=== PATIENT | male | born 1990 | race Two or more races ===

== ENCOUNTER 2024-09-05 06:02 | Emergency (ER) | payer BC, SELFPAY ==
[2024-09-05 06:03] VITALS: BMI 39.1
[2024-09-05 06:32] VITALS: BP 163/93; PULSE 97; RESP 18; TEMP 38; O2SAT 98
[2024-09-05] MEDS: IBUPROFEN TAB 400 MG TABLET 800 MG PO (07:06)
--- NOTE | 2024-09-05 07:55 | XR_ITS ---
Examination: Lumbar spine 3 views Technique one AP lateral coned lateral lower lumbar spine 3 views Exam date and time: September 05, 2024 0825 hours INDICATIONS: Lower back pain beginning 3 years ago FINDINGS: Adequate alignment lumbar vertebral bodies Advanced disc narrowing L5-S1 No spondylolisthesis IMPRESSION: Advanced degenerative disc disease L5-S1
--- NOTE | 2024-09-05 07:55 | XR_ITS ---
Examination: PA lateral chest 2 views TECHNIQUE: Upright PA lateral chest 2 views Exam date and time: September 05, 2024 0818 hours INDICATIONS: Coughing fever beginning 3 days ago. FINDINGS: Normal heart size Lungs are clear. The osseous structures are intact IMPRESSION: No active disease
--- NOTE | 2024-09-05 07:57 | PD.EDRME ---
Rapid Medical Screening Exam RME Arrival date/time: 09/05/24 06:02 This is a 34-year-old male who presents to the emergency department with complaints of headache and lower back pain associated with fever 3 days. I have greeted and performed a focused initial assessment of this patient. Initial appropriate labs ordered at this time. A comprehensive ED assessment and evaluation of the patient and analysis of all test and completion of medical decision making process will be conducted by additional ED provider. Chief Complaint: Fever Time Seen by Provider: 09/05/24 06:11 Vital signs: Vital Signs Temperature 100.4 F 09/05/24 06:32 Pulse Rate 97 09/05/24 06:32 Respiratory Rate 18 09/05/24 06:32 Blood Pressure 163/93 H 09/05/24 06:32 Pulse Oximetry (%) 98 09/05/24 06:32 Oxygen Delivery Method Room Air 09/05/24 06:32
[2024-09-05 08:00] LABS: Strep A Rapid Negative (Negative)
[2024-09-05 09:09] LABS: Lactate (Lactic Acid) 1.3 mMol/L (0.4-2.0)
[2024-09-05 09:10] LABS: Basophils # (Auto) 0.1 Thou/mm3 (0.0-0.2); Basophils % (Auto) 1 % (0-2.5); Eosinophils # (Auto) 0.1 Thou/mm3 (0.0-0.5); Eosinophils % (Auto) 1 % (0-10); Hematocrit 43.9 % (41.0-53.0); Hemoglobin 15.6 g/dL (13.5-16.0); Immature Granulocytes % (Auto) 0 % (0-0); Immature Granulocytes Auto 0.01 Thou/mm3 (0.00-0.00); Lymphocytes # (Auto) 2.1 Thou/mm3 (1.0-4.8); Lymphocytes % (Auto) 29 % (10-50); Mean Corpuscular HGB Conc 35.5 g/dl (31.0-37.0); Mean Corpuscular Hemoglobin 31.9 pg (25.0-35.0); Mean Corpuscular Volume 90 fL (80-100); Monocytes # (Auto) 0.9 Thou/mm3 (0.0-0.8); Monocytes % (Auto) 12 % (0-12); Neutrophils # (Auto) 4.2 Thou/mm3 (1.8-7.7); Neutrophils % (Auto) 57 % (37-80); Nucleated Red Blood Cell % 0 /100 WBC (0); Platelet Count 285 Thou/mm3 (140-440); RDW Standard Deviation 40.5 fL (35.1-43.9); Red Blood Count 4.89 Miln/mm3 (4.50-5.90); White Blood Count 7.4 Thou/mm3 (3.8-10.6)
[2024-09-05 09:47] LABS: Alanine Aminotransferase 182 U/L (10-49); Albumin, Serum 4.8 gm/dL (3.5-5.0); Albumin/Globulin Ratio 1.8 (1.2-2.2); Alkaline Phosphatase 63 U/L (46-116); Anion Gap 9 (7-16); Aspartate Amino Transferase 79 U/L (0-34); BUN/Creatinine Ratio 11 Ratio (12-20); Bilirubin,Total 0.6 mg/dL (0.3-1.2); Blood Urea Nitrogen 11 mg/dL (9-23); Calcium 9.2 mg/dL (8.3-10.6); Calcium (Corrected) 9.2 mg/dL (8.5-10.1); Carbon Dioxide 24.8 mMol/L (20.0-31.0); Chloride 104 mMol/L (98-107); Estimated Creatinine Clearance 127.5 mL/min (>60); Globulin 2.7 gm/dL (2.3-3.5); Glucose 103 mg/dL (74-106); Osmolality,Calculated 275 (275-295); Potassium 3.7 mMol/L (3.4-5.1); Procalcitonin 0.16 ng/ml (0.0-0.49); Sodium 138 mMol/L (136-145); Total Protein 7.5 gm/dL (5.7-8.2); eGFR > 60 See Note
[2024-09-05 09:58] LABS: Collection Type, Urine Clean Catch; Squamous Epithelial Cell,Urine 0 /hpf (0-5)
[2024-09-05 10:02] LABS: Bilirubin,Urine Negative (Negative); Blood,Urine Negative (Negative); Clarity,Urine Clear (Clear/Hazy); Color,Urine Yellow (Lt Yel-Yel); Glucose, Urine Negative (Negative); Ketones,Urine Negative (Negative); Leukocyte Esterase,Urine Negative (Negative); Nitrite,Urine Negative (Negative); PH,Urine 5.5 (5.0-7.0); Protein,Urine Trace (Neg - Trace); RBC,Urine 4 /hpf (0-3); Specific Gravity,Urine 1.024 (1.001-1.035); Urobilinogen,Urine Negative mg/dL (0.0-1.0); WBC,Urine 2 /hpf (0-5)
[2024-09-05 10:55] VITALS: BP 123/78; PULSE 70; RESP 18; TEMP 36.9; O2SAT 99
--- NOTE | 2024-09-18 19:55 | PD.EDBACK ---
ED Back Injury Pain RME/HPI General Chief Complaint: Fever Stated Complaint: FEVER AND SUNSHINE X3 DAYS Time Seen by Provider: 09/05/24 06:11 Source: patient Arrival date/time: 09/05/24 06:02 RME / HPI RME / HPI Narrative: 09/05/24 06:02 This is a 34-year-old male who presents to the emergency department with complaints of headache and lower back pain associated with fever 3 days. I have greeted and performed a focused initial assessment of this patient. Initial appropriate labs ordered at this time. A comprehensive ED assessment and evaluation of the patient and analysis of all test and completion of medical decision making process will be conducted by additional ED provider. Related Data Previous Rx's ?Medication ?Instructions ?Recorded ibuprofen 400 mg tablet 400 mg PO Q8H #20 tabs 11/11/22 amoxicillin 875 mg-potassium 1 tab PO BID #14 tabs 09/05/24 clavulanate 125 mg tablet ibuprofen 800 mg tablet (IBU) 800 mg PO Q8H #20 tabs 09/05/24 Allergies Allergy/AdvReac Type Severity Reaction Status Date / Time No Known Allergies Allergy Verified 11/11/22 11:16 Review of Systems Review of Systems Systems Reviewed: All systems reviewed, normal except as documented Narrative Review of Systems: Gen: No fever, no chills, no weight loss EYES: No discharge, no visual changes, no pain HEENT: No ear pain, no congestion, no sore throat PULM: No shortness of breath, no cough, no congestion CV: No chest pain, no dyspnea on exertion, no palpitations GI: No nausea, no vomiting, no diarrhea, no pain, no constipation : No frequency, no urgency,? no dysuria Musc/skel: No joint pain, no back pain Skin: No rash? ED Exam Narrative Physical exam: General: Sittiing in Exam table in no acute distress, answering questions appropriately HENT: normocephalic, atraumatic, EOMI, PERRLA, moist mucous membranes Chest: chest wall is nontender Cardiac: regular rate and rhythm, normal S1 and S2, no murmurs, rubs, or gallops, capillary refill ?2 seconds Pulmonary: clear to auscultation bilaterally, no wheezing, crackles, or rhonchi Abdominal: active bowel sounds, soft, nontender, nondistended Neuro: A&OX3, CN II-XII intact, sensation grossly intact bilaterally in UE and LE. Skin: no rashes, no ecchymosis Ext: no lower extremity edema Course Quality Measures none Orders Category Date Time Status Bedside COVID-19 Antigen Test NOW Care 09/05/24 06:40 Completed Bedside Influenza A&B Antigen Test NOW Care 09/05/24 06:40 Completed XR chest 2V Stat Exams 09/05/24 07:55 Completed XR lumbar spine 2-3V Stat Exams 09/05/24 07:55 Completed Blood Culture (Lab) Stat Lab 09/05/24 08:44 Completed CBC Stat Lab 09/05/24 08:51 Completed CMP [Comprehensive Metabolic Panel] Stat Lab 09/05/24 08:51 Completed Lactic Acid [Lactate (Lactic Acid)] Stat Lab 09/05/24 08:51 Completed Procalcitonin Stat Lab 09/05/24 08:51 Completed Strep A Rapid Stat Lab 09/05/24 07:28 Completed Urinalysis Stat Lab 09/05/24 09:51 Completed Ibuprofen Tab [Motrin Tab] Med 09/05/24 06:40 Discontinued 800 mg PO X1 ONE Vital Signs Vital signs: Vital Signs Temperature 100.4 F 09/05/24 06:32 Pulse Rate 97 09/05/24 06:32 Respiratory Rate 18 09/05/24 06:32 Blood Pressure 163/93 H 09/05/24 06:32 Pulse Oximetry (%) 98 09/05/24 06:32 Oxygen Delivery Method Room Air 09/05/24 06:32 Back Pain / Injury Patient data External records reviewed:: [facility] previous records Clinical information provided by:: patient Social determinants that could affect healthcare access:: none Patient has the following chronic illnesses:: no How is presenting disease/condition affected by chronic disease/condition?: no chronic disease Evaluation data The following diagnostics were reviewed and interpreted by me:: lab results and radiology exam(s) Lab and/or radiology exams considered but not ordered:: no Interpretation Summary: Examination: PA lateral chest 2 views TECHNIQUE: Upright PA lateral chest 2 views Exam date and time: September 05, 2024 0818 hours INDICATIONS: Coughing fever beginning 3 days ago. FINDINGS: Normal heart size Lungs are clear. The osseous structures are intact IMPRESSION: No active disease Examination: Lumbar spine 3 views Technique one AP lateral coned lateral lower lumbar spine 3 views Exam date and time: September 05, 2024 0825 hours INDICATIONS: Lower back pain beginning 3 years ago FINDINGS: Adequate alignment lumbar vertebral bodies Advanced disc narrowing L5-S1 No spondylolisthesis IMPRESSION: Advanced degenerative disc disease L5-S1 Medications / Prescriptions Medications or Prescriptions considered but not ordered:: no Medication administrations:: Medication Administration History Discontinued Medications Ibuprofen (Ibuprofen Tab 400 Mg Tablet) 800 mg PO X1 ONE Stop: 09/05/24 06:41 Last Admin: 09/05/24 07:06 Dose: 800 mg Documented By: DEMETRA All medications administered and effective Consultations Consultation(s) initiated? (list below): No Diagnosis Differential diagnosis back pain/injury: lumbar radiculopathy, sciatica and strain of lumbar region Most likely diagnosis given after review of the tests above:: Sinusitis and degenerative disc disease Admission Indicated Admission indicated?: not indicated Admission Request Was there a request for admission?: No Disposition Plan Disposition Plan: Discharge Discharge Attestation Discharge Attestation: The patient and all family members were given an opportunity to ask questions and understood the discharge instructions. Discharge instructions specifically effects, indications for sooner follow up or return to the emergency department, and the expected course of current diagnosis. Patient condition: Stable Discharge Plan Plan Patient Disposition: HOME (Self Care) Patient condition on transfer: Stable Prescriptions/Referrals Prescriptions/Med Rec: New ibuprofen [IBU] 800 mg tablet 800 mg PO Q8H Qty: 20 0RF amoxicillin-pot clavulanate 875-125 mg tablet 1 tab PO BID Qty: 14 0RF No Action ibuprofen 400 mg tablet 400 mg PO Q8H Qty: 20 0RF Referrals: No Primary/Family,Physician [Primary Care Provider] - In 1 week Problem List Clinical Impression: Sinusitis chronic, frontal, Degenerative disk disease Patient/Caregiver Discharge Instructions Discharge Activity: activity as tolerated Education Materials: ED Sinusitis (Antibiotic Treatment) Additional Instructions: Sinusitis -please take antibiotic as directed. Start allergy medication as directed. Increase water hydration If no improvement in headache or symptoms please return for evaluation Advanced degenerative disc- Advised patient of nonpharmacologic treatment with superficial heat, massage, acupuncture, or spinal manipulation Advised patient that Physical therapy is often incorporated as a component of conservative therapy Advised to start medications of: Ibuprofen as directed Print Language: Kyrgyz Stand Alone Forms: Aniya Award Info., Work/School Release, Patient Portal Info Letter PA/[employer] Supervising Physician PA/[employer] Supervising Physician: Dr Perez
== END 2024-09-05 12:33 | disposition home or self-care (01) ==
PROVIDERS: Nurse Practitioner Primary Care; Emergency Provider Emergency Medicine
DX: M51.370 Other intervertebral disc degeneration, lumbosacral region with discogenic back pain only (principal); J32.1 Chronic frontal sinusitis; R05.9 Cough, unspecified; R50.9 Fever, unspecified
CPT/HCPCS: 36415; 71046; 72100; 80053; 81001; 83605; 84145; 85025; 87040; 87400; 87651; 87811; 99283; A9270